=== PATIENT | female | born 1950 | race Caucasian/White ===

== ENCOUNTER → 2018-02-18 13:39 | Outpatient (REF) | payer MEDICARE, SELFPAY ==
[2018-02-18 14:35] LABS: TSH (W/Ref FT4) 0.38 uIU/mL (0.358-3.74)
== END ==
LOC: NCHCN 13:39
PROVIDERS: PCP Nurse Practitioner Family; Visit Provider Nurse Practitioner Family
DX: E03.9 Hypothyroidism, unspecified (principal)
CPT/HCPCS: 84443

== ENCOUNTER 2018-08-12 07:53 | Outpatient (REF) | payer MEDICARE, SELFPAY ==
[2018-08-12 13:26] LABS: HCT 41.8 % (36.0-46.0); Mean Corp. HGB Concentration 33.5 g/dL (32.0-36.0); Mean Corpuscular Hemoglobin 30.6 pg (27.0-33.0); Mean Corpuscular Volume 91.5 fL (80-95); Mean Platelet Volume 11.9 fL (8.0-11.0); Platelet Count 206 x1000/uL (130-400); RBC 4.57 m/cumm (4.00-5.20); RBC Distribution Width 13.7 % (11.7-14.6); White Blood Cell Count 6.54 k/cumm (4.4-10.8)
[2018-08-12 13:31] LABS: COMMENT (LAB VIEW ONLY) 126.26 mg/dL; Microalb ug/mg Crea 4.7 ug/mg Cr
[2018-08-12 13:35] LABS: ALT 26 U/L (12-78); AST 16 U/L (15-37); Albumin 3.9 g/dL (3.4-5.0); Alkaline Phosphatase 80 U/L (46-116); Anion Gap 8.5 mmol/L (3-11); BUN 15 mg/dL (7-18); Bilirubin, Total 0.6 mg/dL (0.2-1.0); CO2 27.5 mmol/L (21.0-32.0); CREATININE 0.92 mg/dL (0.55-1.02); Calcium 9.2 mg/dL (8.5-10.1); Chloride 106 mmol/L (98-107); Cholesterol 186 mg/dL (50-200); Glucose 96 mg/dL (70-100); HDL Cholesterol 51 mg/dL (40-60); LDL CHOLESTEROL 105 mg/dL (<100); Potassium 3.9 mmol/L (3.5-5.1); Sodium 142 mmol/L (136-145); Total Protein 7.2 g/dL (6.4-8.2); Triglyceride 173 mg/dL (30-150)
== END 2018-08-12 08:13 ==
LOC: NCHCN 07:53
PROVIDERS: PCP Nurse Practitioner Family; Visit Provider Nurse Practitioner Family
DX: E78.5 Hyperlipidemia, unspecified (principal); I10 Essential (primary) hypertension; E89.0 Postprocedural hypothyroidism
CPT/HCPCS: 80053; 80061; 83721; 85027; 82043; 82570

== ENCOUNTER → 2018-09-20 09:11 | Outpatient (BNVA) | payer MEDICARE, SELFPAY | PROVIDERS: PCP Nurse Practitioner Family; Referring Provider Nurse Practitioner Family; Visit Provider Physical Therapy Assistant | DX: Z12.11 Encounter for screening for malignant neoplasm of colon (principal); Z80.0 Family history of malignant neoplasm of digestive organs; I10 Essential (primary) hypertension; Z79.82 Long term (current) use of aspirin ==

== ENCOUNTER 2018-10-14 08:53 | Day surgery (SDC) | payer MEDICARE, SELFPAY ==
--- NOTE | 2018-10-14 06:58 | W.COLOREPORT ---
Date of service: 10/14/18 Time of Service: 10:09 Colonoscopy Report Date of procedure: 10/14/18 Pre-op diagnosis general: Family history of colon cancer Post-op diagnosis procedure note: same (and internal hemorrhoid tags) Procedure: Colonoscopy with bx of ? Hemorrhoidal skin tag with hot snare Surgeon: Blanquita Mayes Anesthesia proc note operative: other (General/ ASA 2/ Shanelle Cordero, FRANK) Estimated blood loss (mL): 2 Pathology: other (anal skin tag (? polyp)) Complications: None Disposition: same day Indications: Mrs Godfrey is a pleasant 68 year old female with a family history of colon cancer in 4 siblings. Her last Colonoscopy was in 2013 and was normal. Risks, benefits and complications have been reviewed. Complications include but are not limited to bleeding, pain, perforation, missed small lesion/polyp, sore throat, aspiration and adverse reaction to the medications. Questions were entertained and answered to their satisfaction and they wished to proceed. No guarantees were given or implied. Prep: Miralax/Dulcolax Procedure Start Time: 10:09 Procedure End Time: 10:38 Retraction Time: 21 Findings: hemorrhoidal skin tag in the anus. One pretty large so it was biopsied Procedure Description: After informed consent was obtained the patient was taken to the procedure room and placed in a left decubitous position. Monitors were applied and a time out was done. The patients name, date of , procedure, allergies to medications and metal in their body was reviewed. The patient was then sedated. Once sedated and comfortable a rectal exam was done. External exam was normal. Internal exam revealed a normal sphincter tone and no palpable masses. The scope was then introduced and retro-flexed. 2 hemorrhoidal skin tags were identified. One of the skin tags was pedunculated and large so part of it was removed at the end with a hot snare. The scope was then advanced to the cecum without difficulty. The TI and appendiceal orifice were identified. The prep was good. The scope was advanced into the terminal ileum for about 10 cm. It was noted to be normal. The scope was then slowly retracted over 21 minutes back into the rectum. The scope was removed and the patient was woken up and taken back to Same day surgery in stable condition. The patient tolerated the procedure well and there were no immediate complications. Follow up: The patient should follow up in 5 years unless they develop changes in bowel habits or other new gastrointestinal complaints.
--- NOTE | 2018-10-14 07:01 | W.PM.DSUDISC ---
Discharge Plan Disposition Patient Disposition: HOME Condition: Good Discharge Details Reason For Visit: Colon Cancer Screening Attending Provider: Blanquita Mayes Primary Care Provider: Nikki Washington Home Meds and New Rx's Prescriptions: Continued metoprolol tartrate 50 mg tablet 50 mg PO BID RF: 0 losartan-hydrochlorothiazide 100-25 mg tablet 1 tab PO DAILY RF: 0 levothyroxine 125 mcg capsule 125 mcg PO DAILY RF: 0 cholecalciferol (vitamin D3) 2,000 unit capsule 2,000 unit PO DAILY RF: 0 atorvastatin 10 MG tablet 10 mg PO DAILY RF: 0 aspirin [Aspir-81] 81 MG tablet,delayed release (DR/EC) 81 mg PO DAILY RF: 0 Discontinued polyethylene glycol 3350 17 gram/dose powder 238 g PO ONCE Qty: 238 RF: 0 bisacodyl [Dulcolax (bisacodyl)] 5 mg tablet,delayed release (DR/EC) 5 mg PO ONCE Qty: 4 RF: 0 Discharge Instructions Instructions: Colonoscopy (DC) Additional Instructions: Findings: 2 internal skin tags. One was 1 cm in size so I did a biopsy to make sure it is just a skin tag Follow up: 5 years Please call if you develop: fevers >101.5 Nausea or Vomiting Abdominal pain that is not transient DAY SURGERY UNIT POST COLONOSCOPY INSTRUCTIONS 1. Because there will be medication in your system for the next 24 hours, you may feel a little sleepy. Your coordination will be affected. Therefore: a. Do not drive or operate dangerous equipment for 24 hours. b. Do not drink alcohol beverages for 24 hours (not even beer). c. Plan to go home and rest for the day. 2. Generally there are no restrictions on your activity after a day or so has gone by, but you may feel a bit fatigued for a few days. 3 After you arrive home you may have a light meal and return to a normal diet as you can tolerate it without feeling sick to your stomach. 4. After surgery, you may feel pain or discomfort. This should be only transient, but if it persists please contact your doctor. 5. If there are any questions regarding the findings of your procedure, please feel free to contact your doctor. 6. If you are unable to contact your doctor with a problem, contact the hospital at [phone]. 7. Continue all your regular medications unless directed otherwise. I understand the above instructions and have no questions. Signature of Patient or Responsible Adult Escort Date/Time Name of Responsible Adult Escort Signature of Nurse Date/Time Activity:: Activity as Tolerated Diet:: As Tolerated Discharge Orders Discharge Orders: Discharge Order (Routine); Ordered 10/14/18 Ordered By: Blanquita Mayes DS: Diagnosis Discharge Diagnosis (1) S/P colonoscopy: Status: Acute (2) Anal skin tag: Status: Acute
[2018-10-14 09:22] VITALS: BP 159/83; PULSE 56; RESP 16; TEMP 36.8; O2SAT 96
[2018-10-14] MEDS: Lactated Ringers 1,000 ML 80 ML IV (09:36)
--- NOTE | 2018-10-14 10:15 | BOWEL_PTH ---
PATIENT: Wolfgang Godfrey LOC: [facility] U#:[id number] AGE/SX: 68/F ROOM: RE10/14/[address]: Blanquita Mayes MD : [id number] BED: DIS: 10/14/2018 SPEC #: [id number] RECD: 10/14/18 12:59 STATUS: BETSY REQ #: [id number] JELENA: 10/14/18 10:[address]: Blanquita Mayes DEPT: Surgical Specimen RECD BY: Kristi Michael ENTERED: 10/14/18 13:00 SP TYPE: Bowel OTHR DR: Nikki Washington Tissues: 1 - BIOPSY BOWEL Procedures: GROSS AND MICRO LEVEL 4 Comments: [id number]
[2018-10-14 11:33] VITALS: BP 120/73; PULSE 52; RESP 16; TEMP 35.3; O2SAT 100
== END 2018-10-14 11:51 | disposition home or self-care (01) ==
LOC: SUR 08:54
PROVIDERS: PCP Nurse Practitioner Family; Visit Provider Surgery
PROC: 0DJD8ZZ Inspection of Lower Intestinal Tract, Via Natural or Artificial Opening Endoscopic (ICD-10-PCS; CPT 45378; principal; 2018-10-14 10:15)
DX: Z12.11 Encounter for screening for malignant neoplasm of colon (principal); K64.4 Residual hemorrhoidal skin tags; Z80.0 Family history of malignant neoplasm of digestive organs; I10 Essential (primary) hypertension
CPT/HCPCS: 45385; 88305

== ENCOUNTER 2019-02-19 09:22 | Outpatient (REF) | payer MEDICARE, SELFPAY ==
[2019-02-19 12:48] LABS: TSH (W/Ref FT4) 1.09 uIU/mL (0.36-3.74)
== END 2019-02-19 09:42 ==
LOC: NCHCN 09:22
PROVIDERS: PCP Nurse Practitioner Family; Visit Provider Nurse Practitioner
DX: E03.9 Hypothyroidism, unspecified (principal)
CPT/HCPCS: 84443

== ENCOUNTER 2019-09-04 07:59 | Outpatient (REF) | payer MEDICARE, SELFPAY ==
[2019-09-04 12:36] LABS: ALT 22 U/L (14-59); AST 17 U/L (15-37); Albumin 4.1 g/dL (3.4-5.0); Alkaline Phosphatase 79 U/L (46-116); Anion Gap 11.7 mmol/L (3-11); BUN 20 mg/dL (7-18); Bilirubin, Total 0.6 mg/dL (0.2-1.0); CO2 25.3 mmol/L (21.0-32.0); CREATININE 0.92 mg/dL (0.55-1.02); Calcium 9.1 mg/dL (8.5-10.1); Chloride 106 mmol/L (98-107); Glucose 105 mg/dL (74-106); Potassium 3.9 mmol/L (3.5-5.1); Sodium 143 mmol/L (136-145); TSH (W/Ref FT4) 1.68 uIU/mL (0.36-3.74); Total Protein 6.9 g/dL (6.4-8.2)
[2019-09-04 13:53] LABS: Hemoglobin A1C 5.5 % (3.8-5.6)
== END 2019-09-04 08:19 ==
LOC: NCHCN 07:59
PROVIDERS: PCP Nurse Practitioner Family; Visit Provider Nurse Practitioner
DX: I10 Essential (primary) hypertension (principal); E78.5 Hyperlipidemia, unspecified; E03.9 Hypothyroidism, unspecified; Z13.1 Encounter for screening for diabetes mellitus
CPT/HCPCS: 80053; 83036; 84443

== ENCOUNTER 2020-08-10 09:15 | Outpatient (REF) | payer MEDICARE, SELFPAY ==
[2020-08-10 14:24] LABS: ALT 25 U/L (14-59); AST 14 U/L (15-37); Albumin 4.1 g/dL (3.4-5.0); Alkaline Phosphatase 83 U/L (46-116); Anion Gap 7.8 mmol/L (3-11); BUN 17 mg/dL (7-18); Bilirubin, Total 0.7 mg/dL (0.2-1.0); CO2 27.2 mmol/L (21.0-32.0); CREATININE 0.9 mg/dL (0.55-1.02); Calcium 9.6 mg/dL (8.5-10.1); Calculated LDL 90 mg/dL (<100); Chloride 106 mmol/L (98-107); Cholesterol 170 mg/dL (<200); Glucose 97 mg/dL (74-106); HDL Cholesterol 54 mg/dL (40-60); Sodium 141 mmol/L (136-145); TSH (W/Ref FT4) 1.88 uIU/mL (0.36-3.74); Total Protein 7.3 g/dL (6.4-8.2); Triglyceride 130 mg/dL (<150)
== END 2020-08-10 09:16 | disposition home or self-care (01) ==
LOC: NCHCN 09:15
PROVIDERS: PCP Nurse Practitioner Family; Visit Provider Nurse Practitioner
DX: E89.0 Postprocedural hypothyroidism (principal); I10 Essential (primary) hypertension; E78.5 Hyperlipidemia, unspecified
CPT/HCPCS: 80053; 80061; 84443

== ENCOUNTER 2021-08-09 16:24 | Outpatient (REF) | payer MEDICARE, SELFPAY ==
[2021-08-09 14:34] LABS: HCT 43.4 % (36.0-46.0); HGB 14.3 g/dL (11.2-15.7); MCH 29.9 pg (27.0-33.0); MCHC 32.9 % (32.0-36.0); MCV 90.6 fL (80-95); Platelet Count 229 10^3/uL (130-400); RBC 4.79 10^6/uL (3.93-5.22); RDW 13.3 % (11.7-14.6); RDW-SD 44.8 fL; WBC 5.93 10^3/uL (4.4-10.8)
[2021-08-09 14:46] LABS: ALT 33 U/L (14-59); AST 20 U/L (15-37); Albumin 4.2 g/dL (3.4-5.0); Alkaline Phosphatase 80 U/L (46-116); Anion Gap 8.6 mmol/L (3-11); BUN 15 mg/dL (7-18); Bilirubin, Total 0.7 mg/dL (0.2-1.0); CO2 27.4 mmol/L (21.0-32.0); Calcium 9.5 mg/dL (8.5-10.1); Calculated LDL 101 mg/dL (<100); Chloride 105 mmol/L (98-107); Cholesterol 186 mg/dL (<200); Estimated GFR 54.35 (mL/min/1.73m2); Glucose 101 mg/dL (74-106); HDL Cholesterol 57 mg/dL (40-60); Potassium 3.8 mmol/L (3.5-5.1); Sodium 141 mmol/L (136-145); TSH 2.16 uIU/mL (0.36-3.74); Total Protein 7.4 g/dL (6.4-8.2); Triglyceride 141 mg/dL (<150)
== END 2021-08-09 16:25 | disposition home or self-care (01) ==
LOC: NCHCN 16:24
PROVIDERS: PCP Nurse Practitioner Family; Visit Provider Nurse Practitioner Family
DX: I10 Essential (primary) hypertension (principal); E78.5 Hyperlipidemia, unspecified; E89.0 Postprocedural hypothyroidism
CPT/HCPCS: 80053; 80061; 85027; 84443

== ENCOUNTER 2021-11-08 16:36 | Outpatient (REF) | payer MEDICARE, SELFPAY ==
[2021-11-08 16:44] LABS: COMMENT (LAB VIEW ONLY) 40.17 mg/dL
== END 2021-11-08 16:37 | disposition home or self-care (01) ==
LOC: NCHCN 16:36
PROVIDERS: PCP Nurse Practitioner Family; Visit Provider Nurse Practitioner Family
DX: I10 Essential (primary) hypertension (principal); E78.5 Hyperlipidemia, unspecified
CPT/HCPCS: 82043; 82570

== ENCOUNTER 2022-09-12 12:37 | Outpatient (REF) | payer MEDICARE, SELFPAY ==
[2022-09-12 17:16] LABS: ALT 25 U/L (14-59); AST 16 U/L (15-37); Albumin 4.2 g/dL (3.4-5.0); Alkaline Phosphatase 86 U/L (46-116); Anion Gap 9.2 mmol/L (3-11); BUN 14 mg/dL (7-18); Bilirubin, Total 0.7 mg/dL (0.2-1.0); CO2 27.8 mmol/L (21.0-32.0); CREATININE 0.8 mg/dL (0.55-1.02); Calcium 9.7 mg/dL (8.5-10.1); Calculated LDL 87 mg/dL (<100); Chloride 107 mmol/L (98-107); Cholesterol 169 mg/dL (<200); Estimated GFR 77.27 (mL/min/1.73m2); Glucose 97 mg/dL (74-106); HDL Cholesterol 56 mg/dL (40-60); Potassium 3.9 mmol/L (3.5-5.1); Sodium 144 mmol/L (136-145); Total Protein 7.1 g/dL (6.4-8.2); Triglyceride 131 mg/dL (<150)
[2022-09-12 17:29] LABS: COMMENT (LAB VIEW ONLY) 30.88 mg/dL; PROTEIN < 6.0 mg/dL
[2022-09-12 17:32] LABS: COMMENT (LAB VIEW ONLY) 30.46 mg/dL; Microalb ug/mg Crea 4.9 ug/mg Cr
== END 2022-09-12 12:38 | disposition home or self-care (01) ==
LOC: NCHCN 12:37
PROVIDERS: PCP Nurse Practitioner Family; Visit Provider Nurse Practitioner Family
DX: E78.5 Hyperlipidemia, unspecified (principal); I10 Essential (primary) hypertension; E89.0 Postprocedural hypothyroidism
CPT/HCPCS: 80053; 80061; 82043; 82565; 82570; 84156; 84443

== ENCOUNTER 2023-10-23 16:20 | Outpatient (REF) | payer OTHER, SELFPAY ==
[2023-10-23 19:50] LABS: ALT 27 U/L (14-59); AST 17 U/L (15-37); Albumin 4.1 g/dL (3.4-5.0); Alkaline Phosphatase 90 U/L (46-116); Anion Gap 9.8 mmol/L (3-11); BUN 15 mg/dL (7-18); Bilirubin, Total 0.6 mg/dL (0.2-1.0); CO2 26.2 mmol/L (21.0-32.0); CREATININE 0.9 mg/dL (0.55-1.02); Calcium 9.1 mg/dL (8.5-10.1); Calculated LDL 92 mg/dL (<100); Chloride 108 mmol/L (98-107); Cholesterol 176 mg/dL (<200); Estimated GFR 66.67 (mL/min/1.73m2); Glucose 104 mg/dL (74-106); HDL Cholesterol 57 mg/dL (40-60); Sodium 144 mmol/L (136-145); Total Protein 7.1 g/dL (6.4-8.2); Triglyceride 139 mg/dL (<150)
== END 2023-10-23 16:21 | disposition home or self-care (01) ==
LOC: NCHCN 16:20
PROVIDERS: PCP Nurse Practitioner Family; Visit Provider Nurse Practitioner Family
DX: I10 Essential (primary) hypertension (principal); E03.9 Hypothyroidism, unspecified
CPT/HCPCS: 80053; 80061; 84443

== ENCOUNTER 2024-02-21 10:53 | Outpatient (REF) | payer OTHER, SELFPAY ==
[2024-02-22 11:58] LABS: Lyme Ab w Rflx to Lyme Confirm Negative (Negative)
[2024-02-24 23:51] LABS: Anaplasma phagocytophilum Negative (Negative); B. miyamotoi PCR Negative (Negative); Babesia divergens/MO-1 Negative (Negative); Babesia duncani Negative (Negative); Babesia microti Negative (Negative); Ehrlichia chaffeensis Negative (Negative); Ehrlichia ewingii/canis Negative (Negative); Ehrlichia muris eauclairensis Negative (Negative)
== END 2024-02-21 10:54 | disposition home or self-care (01) ==
LOC: NCHCN 10:53
PROVIDERS: PCP Nurse Practitioner Family; Visit Provider Family Medicine
DX: Z20.818 Contact with and (suspected) exposure to other bacterial communicable diseases (principal)
CPT/HCPCS: 87798; 86618

== ENCOUNTER 2024-03-18 02:23 | Outpatient (CLI) | payer OTHER, SELFPAY ==
[2024-03-19 11:05] LABS: Lyme Ab w Rflx to Lyme Confirm Positive (Negative)
[2024-03-19 14:06] LABS: Lyme IgG Ab Positive (Negative); Lyme IgM Ab Positive (Negative)
== END 2024-03-18 02:24 | disposition home or self-care (01) ==
LOC: LBO 02:23
PROVIDERS: PCP Nurse Practitioner Family; Visit Provider Family Medicine
DX: W57.XXXD Bitten or stung by nonvenomous insect and other nonvenomous arthropods, subsequent encounter (principal); S80.869A Insect bite (nonvenomous), unspecified lower leg, initial encounter
CPT/HCPCS: 36415; 86617; 86618

== ENCOUNTER 2024-05-09 05:57 | Day surgery (SDC) | payer MEDICARE, SELFPAY ==
--- NOTE | 2024-05-08 15:25 | W.PM.DSUDISC ---
Date of service: 05/09/24 Time of Service: 07:58 Discharge Plan Disposition Patient Disposition: Home Condition: Good Discharge Details Reason For Visit: screening colonoscopy Attending Provider: Joao De La Paz Primary Care Provider: NICK SALGUERO Home Meds and New Rx's Prescriptions: Continued levothyroxine 125 mcg capsule 125 mcg PO DAILY cholecalciferol (vitamin D3) 2,000 unit capsule 2,000 unit PO DAILY atorvastatin 10 MG tablet 10 mg PO DAILY hydrochlorothiazide 12.5 mg capsule 12.5 mg PO DAILY losartan 100 mg tablet 100 mg PO DAILY Discontinued bisacodyl [Dulcolax (bisacodyl)] 5 mg tablet,delayed release (DR/EC) 5 mg PO ONCE Qty: 4 0RF Rx Instructions: Take per colonoscopy instructions provided by ordering providers office polyethylene glycol 3350 17 gram/dose powder 17 g PO ONCE Qty: 238 0RF Rx Instructions: Take per colonoscopy instructions provided by ordering providers office Discharge Instructions Instructions: Diverticulosis Additional Instructions: Clarisa, it was very nice meeting you today, and I will hope you are comfortable during the colonoscopy. Your prep was excellent and I could see everything just fine. There are no tumors or polyps, or anything in particular to worry about. Incidentally, you do have just a little bit of diverticulosis. Diverticula are little weak spots in the wall of the muscular portion of the colon. This causes the inside lining to pooch outwards. They can get infected or inflamed, during episodes that we refer to as diverticulitis. Hopefully, years will never bother you. I did attach a little bit of information here about basic approaches to diverticular disease. With an otherwise negative screening colonoscopy, and based on your family history, as we discussed before hand, the most aggressive follow-up regimen would be a 5-year interval for the next colonoscopy. I would encourage you to have this discussion with your primary care physician in the years to come, see how you are feeling, and reassess at that point. If you need anything, or have any questions at all, please do not hesitate to ask. 1. If tolerated, consume a soft, low fiber diet for 1-2 days. 2[address] Do not drive, drink alcohol, operate machinery, make critical decisions, or do activities that require coordination or balance for 24 hours. 3. Because air was put into your colon during the procedure, expelling air from your rectum (passing gas or farting) is normal. 4. You may not have a bowel movement for 1-3 days because of the colonoscopy prep. This is normal. 5. Go directly to the emergency room if you notice any of the following: Develop chills (warm to touch), or if you have a thermometer and your temperature is above 101 Difficulty breathing or difficultly swallowing Persistent vomiting Severe abdominal pain, other than gas cramps Severe chest pain Black, tarry stools Any bleeding ? exceeding one tablespoon 6. Call your physician if the site where your intravenous was started becomes red, swollen, painful, and warm to touch. 7. Your physician has reviewed your pre-procedure medications. Please continue to take those medications as previously ordered. You will be given specific information/education regarding any changes to your medications before leaving. Activity:: Activity as Tolerated Diet:: As Tolerated Discharge Orders Discharge Orders: Discharge Order (Routine); Ordered 05/08/24 Ordered By: Joao De La Paz DS: Diagnosis Discharge Diagnosis (1) Encounter for screening colonoscopy: Status: Acute Asessment and Plan: Negative screening colonoscopy today; based on family history, most aggressive recommendation would be repeat colonoscopy in 5 years
--- NOTE | 2024-05-08 15:27 | W.COLOREPORT ---
Date of service: 05/09/24 Time of Service: 08:01 Colonoscopy Report Date of procedure: 05/09/24 Pre-op diagnosis general: screening colonoscopy Post-op diagnosis procedure note: other (Diverticulosis) Procedure: colonoscopy Surgeon: Joao De La Paz Anesthesia Type: General:No Airway Estimated blood loss (mL): 0 Pathology: none sent Complications: None Disposition: same day Indications: Wolfgang is a 74 year old woman who needs her next screening colonoscopy Prep: Miralax/Dulcolax Procedure Start Time: 07:38 Procedure End Time: 07:45 Retraction Time: 0753 Findings: Few scattered diverticula mostly in the sigmoid colon, otherwise negative colonoscopy Procedure Description: After the induction of anesthesia, and with the patient in left lateral decubitus position, I began by performing an external anorectal exam.? Perineum and skin were normal, as was the anal verge.? There is a perianal skin tag consistent with fibrosed old hemorrhoid..? Next, I performed a digital rectal exam.? I did not appreciate any abnormal findings.? Next, I advanced a colonoscope into the rectal vault.? I performed retroflexion.? This appeared normal.? Using insufflation, I then advanced the colonoscope beyond the rectal folds and into the sigmoid colon before advancing towards the cecum.? The quality of the prep was excellent.? The scope was noted to be in the cecum by identification of the ileocecal valve and appendiceal orifice.? I then began withdrawing the colonoscope using repeated irrigation as necessary for full evaluation of the colonic mucosa. ?There were a few diverticula, mostly around the sigmoid colon. Once the scope was withdrawn to the level of the rectum, great care was taken to examine portions of the rectal folds.? Finally, the scope was withdrawn and the patient was brought to the same-day surgery recovery unit as the anesthetic wore off. ?The findings and instructions were shared with the patient prior to discharge. Worden Bowel Prep Worden Bowel Prep Right Colon: 3 Left Colon: 3 Transverse Colon: 3 Total Score: 9
[2024-05-09 06:02] VITALS: BP 147/78; PULSE 88; RESP 16; TEMP 36; O2SAT 98
[2024-05-09] MEDS: Normal Saline Flush 10 ML SYR IV (06:47)
--- NOTE | 2024-05-09 07:21 | W.ANESPRE ---
General Info Date of Service Date Performed: 05/09/24 Height: 5 ft 7 in Weight: 72.4 kg Body Mass Index (BMI): 25.0 Surgical Procedure: Operation Date: 05/09/24 07:35 Proposed Procedure Side Surgeon p Colonoscopy Joao De La Paz MD Meds Allergies and Home Medications Allergies Allergy/AdvReac Type Severity Reaction Status Date / Time lisinopril AdvReac Mild cough Verified 05/09/24 06:16 Home Medication ?Medication ?Instructions ?Recorded atorvastatin 10 mg tablet 10 mg PO DAILY 08/18/13 cholecalciferol (vitamin D3) 50 2,000 unit PO DAILY 09/20/18 mcg (2,000 unit) capsule levothyroxine 125 mcg capsule 125 mcg PO DAILY 09/20/18 hydrochlorothiazide 12.5 mg capsule 12.5 mg PO DAILY 10/31/23 losartan 100 mg tablet 100 mg PO DAILY 10/31/23 Current Visit Medications: Current Medications Generic Name Dose Route Start Last Admin Trade Name Freq PRN Reason Stop Dose Admin Ringer's Solution 500 mls @ 80 mls/hr 05/09/24 06:00 IV 06/07/24 23:59 INFUSION DELISA IV Miscellaneous Supplies 1 each 05/09/24 06:00 Iv Access IV 06/07/24 23:59 DIRECTED DELISA Ondansetron HCl 4 mg 05/08/24 15:28 Ondansetron 4 Mg/2 Ml Vial IVP 06/07/24 15:27 Q4H PRN PRN Nausea / Vomiting Sodium Chloride 0 ml 05/09/24 06:00 05/09/24 06:47 Normal Saline Flush 10 Ml Syr IV 06/07/24 23:59 10 ml PRN PRN Administration Sodium Chloride 0 ml 05/09/24 06:00 Normal Saline 10 Ml Vial IJ 06/07/24 23:59 DIRECTED PRN Sterile Water 0 ml 05/09/24 06:00 Water,Injection,Sterile 10 Ml Vial IJ 06/07/24 23:59 DIRECTED PRN PFSH Active Problems Active Problems: Problem Status Onset Code Anal skin tag Acute ~10/14/18 S/P colonoscopy Acute ~10/14/18 Z98.890 Family history of colon cancer Acute Z80.0 Encounter for screening colonoscopy Acute Z12.11 Medical History Medical History Hx of Lyme disease Cataract Hemorrhoid HTN (hypertension) Hyperlipidemia Obesity Hypothyroidism Normal colonoscopy (09/12/13) Dr Sosa, normal, repeat 5 years due to family history colon cancer Family history of colon cancer requiring screening colonoscopy has had three normal colonoscopies, had family history of colon cancer on 5 year repeat schedule Surgical History Surgical History History of cataract surgery Tobacco Smoking/Tobacco Use Status: Never Alcohol Alcohol Intake: never Substance Use Substance use: Never Substance use type: does not use Vital Signs and Lab Results Vital Signs Most Recent Vital Signs in EMR: Most Recent Vital Signs Temp Pulse Resp BP Pulse Ox 36 C L 88 16 147/78 H 98 05/09/24 06:02 05/09/24 06:02 05/09/24 06:02 05/09/24 06:02 05/09/24 06:02 Lab Results Blood Type / Crossmatch: No Data to Display Complete Blood Count: No Data to Display Complete Metabolic Panel: No Data to Display Liver Function Panel: No Data to Display Coagulation Panel: No Data to Display Cardiac Panel: No Data to Display Arterial Blood Gas: No Data to Display Venous Blood Gas: No Data to Display Pancreas Panel: No Data to Display Thyroid Panel: No Data to Display Infectious Disease: No Data to Display Blood Cultures: No Data to Display Toxicology Panel: No Data to Display Anesthesia Assessment and Plan Anesthesia History Personal History: No History of Anesthesia Complications Family History: No Family History of Anesthesia Complications Exercise Tolerance Exercise Tolerance: Metabolic Equivalents>4 Pertinent Negatives Pertinent Negatives: No Symptoms of GERD, No Major Cardiovascular Symptoms or Complaints, No Major Pulmonary Symptoms or Complaints and No History of CVA/TIA Cardiac & Pulmonary Exam Cardiac Exam: Normal S1/S2 Heart Sounds Pulmonary Exam: Clear Bilateral Breath Sounds Implantable Cardiac Device Does patient have a Pacemaker or an ICD?: No Airway Exam Known Difficult Airway: No Mallampati Class: 1 Mouth Opening: Normal (> 3cm) Thyromental Distance: Greater than 3 cm Neck Range of Motion: Full ROM Neck Circumference: Normal Teeth Condition: Removable Dentures/Plates Upper ASA Classification ASA Score: ASA 2 Emergency Case?: No NPO Status NPO Status: NPO Clears >2 hours, Solids >8 hours Anesthesia Plan Resuscitation Status: Full Code Anesthesia Technique: General Anesthesia Airway Planned: Natural Airway Monitors Used: Standard Monitors Preoperative Comments:: 74 y/o female with history of HTN, obesity and hypothyroidism presents for colonoscopy screening. Her last screening was in 2019, which was remarkable for a polyp in the rectum, which returned as a hemorrhoid skin tag. She has a family history of colon cancer in multiple relatives her brother and half sibilings.
[2024-05-09 07:25] VITALS: BMI 25.0
--- NOTE | 2024-05-09 07:28 | W.PREOPHP ---
Assessment and Plan Assessment and plan (1) Encounter for screening colonoscopy: Status: Acute Assessment and plan: I explained the process for colonoscopy and the risks and the befits of the procedure. Caroline had the chance to ask any questions. We can oproceed as planned History of Present Illness History of Present Illness Chief Complaint: screening colonoscopy Narrative: 74 y/o female with history of HTN, obesity and hypothyroidism presents for colonoscopy screening pre-op. Her last screening was in 2019, which was remarkable for a polyp in the rectum, which returned as a hemorrhoid skin tag. She has a family history of colon cancer in multiple relatives her brother and half sibilings. She denies any changes in bowel habits including bloody or black tarry stools, abdominal pain, diarrhea or constipation. She denies constitutional symptoms. She denies chest pain, palpitations, dyspnea or dyspnea with exertion. She is physically active walking x 45 mins, 5x/wk. She denies prior history or family history of adverse reactions or complications with anesthesia. The patient denies any history of stroke, [place], seizures, bleeding or clotting disorders. She denies having any implanted metal in her body. Since her last office encounter, there have been significant changes to the interval history or physical exam PFSH All Active Problems Anal skin tag (Acute ~10/14/18) S/P colonoscopy (Acute ~10/14/18) Family history of colon cancer (Acute) Encounter for screening colonoscopy (Acute) Medical History Hx of Lyme disease Cataract Hemorrhoid HTN (hypertension) Hyperlipidemia Obesity Hypothyroidism Normal colonoscopy (09/12/13) Dr Sosa, normal, repeat 5 years due to family history colon cancer Family history of colon cancer requiring screening colonoscopy has had three normal colonoscopies, had family history of colon cancer on 5 year repeat schedule Surgical History History of cataract surgery Family History (Updated 10/09/18 @ 09:34 by Karely May RN) Other Colon cancer Social History Smoking/Tobacco Use Status: Never Smoking risk assessment performed?: Yes Alcohol Intake: never Drug use: Never Substance use type: does not use Housing: house Do you feel safe at home: Yes Do you feel safe in your relationship?: Yes Meds Allergies and Home Medications Allergies Allergy/AdvReac Type Severity Reaction Status Date / Time lisinopril AdvReac Mild cough Verified 05/09/24 06:16 Home Medications ?Medication ?Instructions ?Recorded ?Confirmed ?Type atorvastatin 10 mg tablet 10 mg PO DAILY 08/18/13 05/09/24 History cholecalciferol (vitamin D3) 50 2,000 unit PO DAILY 09/20/18 05/09/24 History mcg (2,000 unit) capsule levothyroxine 125 mcg capsule 125 mcg PO DAILY 09/20/18 05/09/24 History hydrochlorothiazide 12.5 mg capsule 12.5 mg PO DAILY 10/31/23 05/09/24 History losartan 100 mg tablet 100 mg PO DAILY 10/31/23 05/09/24 History Exam Const General: cooperative, healthy appearing and not in acute distress Neck Neck: normal visual inspection, no lymphadenopathy and supple Resp Effort & Inspection: normal respiratory effort Auscultation: clear to auscultation bilaterally Cardio Jugular venous pressure: no JVD Rate: regular rate Rhythm: regular rhythm Heart Sounds: S1 normal and S2 normal GI Inspection: normal to inspection Palpation: soft, no guarding, no hernias and nontender Percussion: normal to percussion Auscultation: normal bowel sounds Neuro General: patient alert, patient awake and patient oriented x3 Psych Appearance: grossly normal Results Last Vital Signs Temp 96.8 F L 05/09/24 06:02 Pulse 88 05/09/24 06:02 Resp 16 05/09/24 06:02 BP 147/78 H 05/09/24 06:02 Pulse Ox 98 05/09/24 06:02
[2024-05-09 08:02] VITALS: BP 113/74; PULSE 66; RESP 16; TEMP 36.6; O2SAT 97
--- NOTE | 2024-05-09 08:13 | W.ANESPOSTOP ---
Postoperative Evaluation Date, Time and Location Date Performed: 05/09/24 Time Performed: 08:08 Patient Location: Day Surgery Unit Vital Signs Most Recent Imported Vital Signs: Most Recent Vital Signs Temp Pulse Resp BP Pulse Ox 36.6 C 66 16 113/74 97 05/09/24 08:02 05/09/24 08:02 05/09/24 08:02 05/09/24 08:02 05/09/24 08:02 Pain Score Most Recent Pain Score: Most Recent Pain Score Pain Level 0 05/09/24 08:02 Assessment Mental Status: Awake (Alert & Oriented to Patient Baseline) Airway and Respiratory Function: Patent airway with normal (patient baseline) respiratory exam Cardiovascular Function: Hemodynamically Stable Hydration Status: Adequately Hydrated Nausea & Vomiting: No Nausea or Vomiting Pain: Pt. Denies Any Pain Peripheral Nerve Block: Patient did not receive a nerve block
[2024-05-09 08:18] VITALS: BP 146/86; PULSE 59; RESP 16; TEMP 36.6; O2SAT 100
== END 2024-05-09 08:30 | disposition home or self-care (01) ==
PROVIDERS: PCP Nurse Practitioner Family; Visit Provider Surgery
PROC: 0DJD8ZZ Inspection of Lower Intestinal Tract, Via Natural or Artificial Opening Endoscopic (ICD-10-PCS; CPT 45378; principal; 2024-05-09 07:30)
DX: Z12.11 Encounter for screening for malignant neoplasm of colon (principal); I10 Essential (primary) hypertension; E66.9 Obesity, unspecified; K57.30 Diverticulosis of large intestine without perforation or abscess without bleeding
CPT/HCPCS: G0105; J2704

== ENCOUNTER 2024-05-19 01:20 | Outpatient (CLI) | payer MEDICARE, SELFPAY ==
--- NOTE | 2024-05-19 | DI.MAMMO_ITS ---
Exam(s) MAMMO SCREENING EXAM: MAMMO SCREENING CLINICAL HISTORY: Screening, Z12.31 TECHNIQUE: Mammograms were interpreted according to the usual protocol including computer analysis w Image[employer] CAD system, tomosynthesis and C-view imaging. COMPARISON: 2018 through 2022 FINDINGS: The breasts are composed of scattered fibroglandular densities, Breast Density category B. No suspicious masses or suspicious microcalcifications are seen. A biopsy marker clip is again noted in the upper outer quadrant of right breast. The previously noted area of nodularity in the superio r left breast is less prominent on the current exam. No skin thickening or abnormal axillary lymph nodes are seen. There has been no significant change from prior exams. IMPRESSION: BI-RADS Category 1, Negative mammogram Yearly screening mammography is recommended. Breast Density - Category B, scattered fibroglandular densities. A negative radiographic report should not delay biopsy if a dominant or clinically suspicious mass is present. Up to ten percent of cancers are not identified on mammography. A negative report may reinforce clinical impression. Adenosis and dense breasts may obscure an underlying neoplasm. False positive reports average 6 to 10%. Patient will receive a letter notifying them of these results.
== END 2024-05-19 01:40 ==
LOC: DI 01:20
PROVIDERS: PCP Nurse Practitioner Family; Visit Provider Nurse Practitioner Family
DX: Z12.31 Encounter for screening mammogram for malignant neoplasm of breast (principal); R92.323 Mammographic fibroglandular density, bilateral breasts
CPT/HCPCS: 77063; 77067

== ENCOUNTER 2024-10-23 09:33 | Outpatient (REF) | payer MEDICARE, SELFPAY ==
[2024-10-23 14:20] LABS: Microalb ug/mg Crea 5.6 ug/mg Cr
[2024-10-23 14:24] LABS: ALT 29 U/L (14-59); AST 18 U/L (15-37); Albumin 4.2 g/dL (3.4-5.0); Alkaline Phosphatase 94 U/L (46-116); Anion Gap 9.8 mmol/L (3-11); BUN 17 mg/dL (7-18); Bilirubin, Total 0.6 mg/dL (0.2-1.0); CO2 28.2 mmol/L (21.0-32.0); CREATININE 0.9 mg/dL (0.55-1.02); Calcium 9.4 mg/dL (8.5-10.1); Calculated LDL 98 mg/dL (<100); Chloride 108 mmol/L (98-107); Cholesterol 188 mg/dL (<200); Estimated GFR 66.26 (mL/min/1.73m2); Glucose 95 mg/dL (74-106); HDL Cholesterol 71 mg/dL (>or=50); Potassium 4.1 mmol/L (3.5-5.1); Sodium 146 mmol/L (136-145); TSH (W/Ref FT4) 0.43 uIU/mL (0.36-3.74); Total Protein 7.3 g/dL (6.4-8.2); Triglyceride 96 mg/dL (<150)
== END 2024-10-23 09:34 | disposition home or self-care (01) ==
LOC: NCHCN 09:33
PROVIDERS: PCP Nurse Practitioner Family; Visit Provider Nurse Practitioner Family
DX: I10 Essential (primary) hypertension (principal); E78.5 Hyperlipidemia, unspecified; E03.9 Hypothyroidism, unspecified
CPT/HCPCS: 80053; 80061; 82043; 82570; 84443

== ENCOUNTER → 2025-05-22 02:58 | Outpatient (CLI) | payer MEDICARE, SELFPAY ==
--- NOTE | 2025-05-22 | DI.MAMMO_ITS ---
Exam(s) MAMMO SCREENING EXAM: MAMMO SCREENING CLINICAL HISTORY: SCREENING MAMMO Z12.31. TECHNIQUE: Bilateral full field digital CC and MLO mammographic images were obtained with 3D tomosynthesis and utilizing computer aided detection (CAD). COMPARISON: Prior mammograms were reviewed. FINDINGS: There has been no significant change in the appearance and distribution of the fibroglandular tissue. There are no new findings in the immediate vicinity of a biopsy marker clip in the right breast. There are no new spiculated masses nor malignant appearing microcalcification groups. There is no significant architectural distortion nor skin thickening-retraction. IMPRESSION: No radiographic evidence of malignancy. BI-RADS Category 1 - Negative Breast Density - Category B - There are scattered areas of fibroglandular density. Breast density Category C or D implies that the patient has dense breast tissue. Dense breast tissue can make it harder to find cancer on a mammogram. Dense breast tissue is also associated with an increased risk of breast cancer. This information about the result of the mammogram report was provided to the patient to raise their awareness. Use this report when you speak with the patient about their risks for breast cancer, which includes their family history. At that time, you may recommend additional screening tests (Ultrasound or MRI) as these tests may add significant information. A negative radiographic report should not delay biopsy if a dominant or clinically suspicious mass is present. Up to ten percent of cancers are not identified on mammography. A negative report may reinforce clinical impression. Adenosis and dense breasts may obscure an underlying neoplasm. False positive reports average 6 to 10%. Patient will receive a letter notifying them of these results.
== END ==
PROVIDERS: PCP Nurse Practitioner Family; Visit Provider Nurse Practitioner Family
DX: Z12.31 Encounter for screening mammogram for malignant neoplasm of breast (principal); R92.323 Mammographic fibroglandular density, bilateral breasts
CPT/HCPCS: 77063; 77067